=== PATIENT | female | born 1945 | race Caucasian/White ===

== ENCOUNTER 2023-02-07 16:33 | Inpatient (IN) | payer MEDICARE ==
[2023-02-07] MEDS ORDERED: clonazePAM 0.5 MG TAB PO PRN (20:21)
[2023-02-07] MEDS ORDERED: Senokot S 8.6-50 MG TAB PO PRN (20:23)
[2023-02-07] MEDS ORDERED: Ondansetron PF 4 MG/2 ML Vial IVP PRN (20:23)
[2023-02-07] MEDS ORDERED: Acetaminophen 325 MG TAB PO PRN (20:23)
[2023-02-07] MEDS ORDERED: Bisacodyl 5 MG TAB PO PRN (20:23)
[2023-02-07] MEDS ORDERED: Calcium Carbonate 500 MG ChewTAB PO PRN (20:23)
[2023-02-07 20:26] LABS: Anion Gap 19 mmol/L (10-20); BUN (Urea Nitrogen) 112 mg/dL (9.8-20.1); Calc. Creatinine Clearance 0 mL/min (70-130); Calcium 10.3 mg/dL (7.8-10.44); Carbon Dioxide 19 mmol/L (23-31); Chloride 105 mmol/L (98-107); Estimated GFR 14; Glucose 108 mg/dL (83-110); Sodium 137 mmol/L (136-145)
[2023-02-07] MEDS ORDERED: Albumin 25% 25 GM/100 ML BOT IVPB SCH (20:30)
[2023-02-07 20:36] LABS: Potassium 6.1 mmol/L (3.5-5.1)
[2023-02-07] MEDS ORDERED: Calcium Gluc 4.6 MEQ/10 ML (100 MG/ML) SLOW IVP SCH (20:45)
[2023-02-07] MEDS ORDERED: LOKELMA 10 GM PACKET PO SCH (20:45)
[2023-02-07 20:54] LABS: Troponin I 0.027 ng/mL (< 0.028)
[2023-02-07] MEDS ORDERED: Metoprolol Tartrate 25 MG TAB PO SCH (21:00)
[2023-02-08] MEDS ORDERED: Albumin 25% 25 GM/100 ML BOT IVPB SCH (01:00)
[2023-02-08] MEDS ORDERED: Calcium Gluc 4.6 MEQ/10 ML (100 MG/ML) SLOW IVP SCH (01:00)
[2023-02-08] MEDS ORDERED: LOKELMA 10 GM PACKET PO SCH (01:00)
[2023-02-08] MEDS: Dextrose 5 % And 0.9 % NaCl 1,000 ML IV SCH ×3 (01:07→16:30)
[2023-02-08] MEDS: Atorvastatin Calcium 10 MG TAB PO SCH ×2 (01:07→23:07)
[2023-02-08 04:43] LABS: #Monocytes 0.6 10x3/uL (0.0-1.1); #Neutrophils 1.9 10x3/uL (1.5-8.4); %Basophils 0.3 % (0.0-2.0); %Eosinophils 0.8 % (0.0-6.0); %Lymphocytes 34.4 % (18.0-47.0); %Monocytes 14.8 % (0.0-10.0); %Neutrophils 49.4 % (40.0-75.0); Hematocrit 37.6 % (34.9-44.5); Mean Corpuscular HGB CONC 31.9 g/dL (32.0-36.0); Mean Corpuscular Hemoglobin 28.2 pg (27.0-33.0); Mean Corpuscular Volume 88.5 fl (81.6-98.3); Mean Platelet Volume 12.8 fl (7.4-10.4); Platelet Count 126 10x3/uL (150-450); Red Blood Cell (RBC) Count 4.25 10x6/uL (3.90-5.03); White Blood Cell (WBC) Count 3.8 10x3/uL (3.5-10.5)
[2023-02-08 04:49] LABS: Anion Gap 17 mmol/L (10-20); BUN (Urea Nitrogen) 102 mg/dL (9.8-20.1); Calc. Creatinine Clearance 0 mL/min (70-130); Calcium 9.6 mg/dL (7.8-10.44); Carbon Dioxide 24 mmol/L (23-31); Chloride 107 mmol/L (98-107); Estimated GFR 17; Glucose 99 mg/dL (83-110); Potassium 5.6 mmol/L (3.5-5.1); Sodium 142 mmol/L (136-145)
[2023-02-08 04:51] LABS: Prothrombin Time 85.2 sec (9.5-12.1)
[2023-02-08 04:55] LABS: INR-International Normal Ratio 8.2
[2023-02-08] MEDS ORDERED: Phytonadione 10 MG/ML AMP SLOW IVP SCH (05:00)
[2023-02-08] MEDS ORDERED: Metoprolol Tartrate 25 MG TAB PO SCH ×2 (05:05→09:00)
[2023-02-08] MEDS ORDERED: Phytonadione 10 MG, Admixture Fee 1 EACH in Sodium Chloride 0.9% 50 ML IVPB SCH (05:15)
[2023-02-08] MEDS: Ipratropium/Albuterol 3 ML NEB NEB PRN (06:46)
[2023-02-08] MEDS: Mometasone/Formoterol 60 PUFF AER INH SCH ×2 (06:48→19:12)
[2023-02-08 07:04] LABS: Thyroid Stimulating Hormone 0.3117 uIU/mL (0.35-4.94)
[2023-02-08 07:55] VITALS: BMI 21.5
[2023-02-08] MEDS: Escitalopram Oxalate 10 mg Tablet PO SCH (09:33)
[2023-02-08 09:54] LABS: Anion Gap 19 mmol/L (10-20); BUN (Urea Nitrogen) 99 mg/dL (9.8-20.1); Calc. Creatinine Clearance 15 mL/min (70-130); Calcium 9.5 mg/dL (7.8-10.44); Carbon Dioxide 19 mmol/L (23-31); Chloride 110 mmol/L (98-107); Estimated GFR 18; Glucose 106 mg/dL (83-110); Potassium 5.1 mmol/L (3.5-5.1); Sodium 143 mmol/L (136-145)
[2023-02-09 05:08] LABS: #Eosinphils 0.1 10x3/uL (0.0-0.5); #Monocytes 0.8 10x3/uL (0.0-1.1); #Neutrophils 3.3 10x3/uL (1.5-8.4); %Basophils 0.2 % (0.0-2.0); %Eosinophils 1.2 % (0.0-6.0); %Lymphocytes 26.6 % (18.0-47.0); %Monocytes 14.4 % (0.0-10.0); %Neutrophils 57.3 % (40.0-75.0); Hematocrit 38.3 % (34.9-44.5); Hemoglobin 11.6 g/dL (12.0-15.5); Mean Corpuscular HGB CONC 30.3 g/dL (32.0-36.0); Mean Corpuscular Hemoglobin 27.6 pg (27.0-33.0); Mean Platelet Volume 12.8 fl (7.4-10.4); Platelet Count 135 10x3/uL (150-450); RBC Distribution Width 14.8 % (11.5-14.5); Red Blood Cell (RBC) Count 4.21 10x6/uL (3.90-5.03); White Blood Cell (WBC) Count 5.8 10x3/uL (3.5-10.5)
[2023-02-09 05:17] LABS: INR-International Normal Ratio 1.3; Prothrombin Time 13.5 sec (9.5-12.1)
[2023-02-09 05:29] LABS: Troponin I 0.014 ng/mL (< 0.028)
[2023-02-09 05:32] LABS: Anion Gap 13 mmol/L (10-20); BUN (Urea Nitrogen) 63 mg/dL (9.8-20.1); Calc. Creatinine Clearance 23 mL/min (70-130); Calcium 8.6 mg/dL (7.8-10.44); Carbon Dioxide 24 mmol/L (23-31); Chloride 111 mmol/L (98-107); Estimated GFR 29; Glucose 89 mg/dL (83-110); Potassium 4.6 mmol/L (3.5-5.1); Sodium 143 mmol/L (136-145)
[2023-02-09] MEDS: Mometasone/Formoterol 60 PUFF AER INH SCH ×2 (07:35→19:15)
[2023-02-09] MEDS ORDERED: Sodium Chloride 0.9% 1,000 ML IV SCH (08:00)
[2023-02-09] MEDS: Escitalopram Oxalate 10 mg Tablet PO SCH (08:35)
[2023-02-09] MEDS: Sodium Chloride 0.45% 1,000 ML IV SCH (10:00)
[2023-02-09] MEDS: Warfarin Sodium 2.5 MG TAB PO SCH (17:18)
[2023-02-10] MEDS: Atorvastatin Calcium 10 MG TAB PO SCH ×2 (00:30→20:37)
[2023-02-10 04:35] LABS: #Eosinphils 0.1 10x3/uL (0.0-0.5); #Monocytes 0.8 10x3/uL (0.0-1.1); #Neutrophils 4.9 10x3/uL (1.5-8.4); %Basophils 0.1 % (0.0-2.0); %Eosinophils 0.7 % (0.0-6.0); %Lymphocytes 17.6 % (18.0-47.0); %Monocytes 11.5 % (0.0-10.0); %Neutrophils 69.8 % (40.0-75.0); Hematocrit 38.7 % (34.9-44.5); Mean Corpuscular Hemoglobin 27.8 pg (27.0-33.0); Mean Corpuscular Volume 89.8 fl (81.6-98.3); Mean Platelet Volume 12.4 fl (7.4-10.4); Platelet Count 137 10x3/uL (150-450); RBC Distribution Width 14.7 % (11.5-14.5); Red Blood Cell (RBC) Count 4.31 10x6/uL (3.90-5.03)
[2023-02-10 04:39] LABS: Anion Gap 12 mmol/L (10-20); BUN (Urea Nitrogen) 41 mg/dL (9.8-20.1); Calc. Creatinine Clearance 28 mL/min (70-130); Calcium 8.4 mg/dL (7.8-10.44); Carbon Dioxide 25 mmol/L (23-31); Chloride 107 mmol/L (98-107); Estimated GFR 38; Glucose 90 mg/dL (83-110); Potassium 4.5 mmol/L (3.5-5.1); Sodium 139 mmol/L (136-145)
[2023-02-10 04:44] LABS: INR-International Normal Ratio 1.1
[2023-02-10] MEDS: Sodium Chloride 0.45% 1,000 ML IV SCH ×2 (05:42→20:37)
[2023-02-10] MEDS: Escitalopram Oxalate 10 mg Tablet PO SCH (08:28)
[2023-02-10] MEDS: Mometasone/Formoterol 60 PUFF AER INH SCH ×2 (10:00→18:59)
[2023-02-10] MEDS: Warfarin Sodium 2.5 MG TAB PO SCH (18:49)
[2023-02-11 04:25] LABS: INR-International Normal Ratio 1.2; Prothrombin Time 12.4 sec (9.5-12.1)
[2023-02-11 04:27] LABS: #Monocytes 0.8 10x3/uL (0.0-1.1); #Neutrophils 5.4 10x3/uL (1.5-8.4); %Basophils 0.3 % (0.0-2.0); %Eosinophils 0.5 % (0.0-6.0); %Lymphocytes 18.8 % (18.0-47.0); %Monocytes 9.9 % (0.0-10.0); %Neutrophils 70.1 % (40.0-75.0); Anion Gap 13 mmol/L (10-20); BUN (Urea Nitrogen) 28 mg/dL (9.8-20.1); Calc. Creatinine Clearance 33 mL/min (70-130); Calcium 8.6 mg/dL (7.8-10.44); Carbon Dioxide 23 mmol/L (23-31); Chloride 104 mmol/L (98-107); Estimated GFR 46; Glucose 89 mg/dL (83-110); Hematocrit 39.7 % (34.9-44.5); Hemoglobin 12.5 g/dL (12.0-15.5); Mean Corpuscular HGB CONC 31.5 g/dL (32.0-36.0); Mean Corpuscular Hemoglobin 27.4 pg (27.0-33.0); Mean Corpuscular Volume 86.9 fl (81.6-98.3); Mean Platelet Volume 12.6 fl (7.4-10.4); Platelet Count 157 10x3/uL (150-450); Potassium 4.1 mmol/L (3.5-5.1); RBC Distribution Width 14.6 % (11.5-14.5); Red Blood Cell (RBC) Count 4.57 10x6/uL (3.90-5.03); Sodium 136 mmol/L (136-145); White Blood Cell (WBC) Count 7.7 10x3/uL (3.5-10.5)
[2023-02-11] MEDS: Escitalopram Oxalate 10 mg Tablet PO SCH (09:15)
[2023-02-11] MEDS: Mometasone/Formoterol 60 PUFF AER INH SCH ×2 (10:30→19:22)
[2023-02-11] MEDS ORDERED: Warfarin Sodium 5 MG TAB PO SCH (17:00)
[2023-02-11] MEDS: Atorvastatin Calcium 10 MG TAB PO SCH (21:51)
[2023-02-11] MEDS: Sodium Chloride 0.45% 1,000 ML IV SCH (22:39)
[2023-02-12 04:05] LABS: INR-International Normal Ratio 1.4; Prothrombin Time 15.3 sec (9.5-12.1)
[2023-02-12 04:07] LABS: Anion Gap 16 mmol/L (10-20); BUN (Urea Nitrogen) 24 mg/dL (9.8-20.1); Calc. Creatinine Clearance 36 mL/min (70-130); Calcium 8.6 mg/dL (7.8-10.44); Carbon Dioxide 20 mmol/L (23-31); Chloride 105 mmol/L (98-107); Estimated GFR 52; Glucose 85 mg/dL (83-110); Sodium 137 mmol/L (136-145)
[2023-02-12 04:57] LABS: #Eosinphils 0.1 10x3/uL (0.0-0.5); #Monocytes 0.7 10x3/uL (0.0-1.1); %Basophils 0.4 % (0.0-2.0); %Eosinophils 0.8 % (0.0-6.0); %Lymphocytes 22.9 % (18.0-47.0); %Monocytes 8.7 % (0.0-10.0); %Neutrophils 66.8 % (40.0-75.0); Hematocrit 40.2 % (34.9-44.5); Hemoglobin 12.8 g/dL (12.0-15.5); Mean Corpuscular HGB CONC 31.8 g/dL (32.0-36.0); Mean Corpuscular Hemoglobin 27.9 pg (27.0-33.0); Mean Corpuscular Volume 87.8 fl (81.6-98.3); Mean Platelet Volume 12.8 fl (7.4-10.4); Platelet Count 144 10x3/uL (150-450); RBC Distribution Width 14.6 % (11.5-14.5); Red Blood Cell (RBC) Count 4.58 10x6/uL (3.90-5.03); White Blood Cell (WBC) Count 7.6 10x3/uL (3.5-10.5)
[2023-02-12] MEDS: Mometasone/Formoterol 60 PUFF AER INH SCH ×2 (07:35→21:00)
[2023-02-12] MEDS: Ipratropium/Albuterol 3 ML NEB NEB PRN (07:45)
[2023-02-12] MEDS: Escitalopram Oxalate 10 mg Tablet PO SCH (08:57)
[2023-02-12] MEDS ORDERED: Warfarin Sodium 5 MG TAB PO SCH (17:00)
[2023-02-12] MEDS: Sodium Chloride 0.45% 1,000 ML IV SCH (19:00)
[2023-02-12] MEDS: Atorvastatin Calcium 10 MG TAB PO SCH (21:38)
[2023-02-13 04:38] LABS: INR-International Normal Ratio 1.9; Prothrombin Time 20.5 sec (9.5-12.1)
[2023-02-13] MEDS: Mometasone/Formoterol 60 PUFF AER INH SCH ×2 (06:38→19:45)
[2023-02-13] MEDS: Escitalopram Oxalate 10 mg Tablet PO SCH (08:44)
[2023-02-13] MEDS: Sodium Chloride 0.45% 1,000 ML IV SCH (14:03)
[2023-02-13] MEDS: Warfarin Sodium 2.5 MG TAB PO SCH (17:08)
[2023-02-13] MEDS: Atorvastatin Calcium 10 MG TAB PO SCH (20:53)
[2023-02-14 04:37] LABS: INR-International Normal Ratio 2.3; Prothrombin Time 24.5 sec (9.5-12.1)
[2023-02-14] MEDS: Mometasone/Formoterol 60 PUFF AER INH SCH ×2 (06:40→20:07)
[2023-02-14] MEDS: Escitalopram Oxalate 10 mg Tablet PO SCH (09:39)
[2023-02-14] MEDS ORDERED: Sodium Chloride 0.9% 500 ML IV SCH (09:45)
[2023-02-14] MEDS: Warfarin Sodium 2.5 MG TAB PO SCH (17:26)
[2023-02-14] MEDS ORDERED: Ketotifen Fumarate 0.025% Ophth Soln 5 ml Bottle R EYE SCH (18:00)
[2023-02-14] MEDS: Atorvastatin Calcium 10 MG TAB PO SCH (20:28)
[2023-02-14] MEDS: Ketotifen Fumarate 0.025% Ophth Soln 5 ml Bottle EA EYE SCH (20:28)
[2023-02-15 04:34] LABS: INR-International Normal Ratio 2.7
[2023-02-15 04:39] VITALS: TEMP 97.7
[2023-02-15 07:21] VITALS: BP 110/64
[2023-02-15] MEDS: Mometasone/Formoterol 60 PUFF AER INH SCH (07:59)
[2023-02-15] MEDS: Escitalopram Oxalate 10 mg Tablet PO SCH (08:32)
[2023-02-15] MEDS: Ketotifen Fumarate 0.025% Ophth Soln 5 ml Bottle EA EYE SCH (08:32)
== END 2023-02-15 11:27 | DRG 682 ==
LOC: CSHTELE 17:56
PROVIDERS: ADMIT Hospitalist; ATTEND Internal Medicine
PROC: 30233J1 Transfusion of Nonautologous Serum Albumin into Peripheral Vein, Percutaneous Approach (ICD-10-PCS; principal; 2023-02-08)
DX: N17.9 Acute kidney failure, unspecified (principal); G93.41 Metabolic encephalopathy; E87.20 Acidosis, unspecified; I13.0 Hypertensive heart and chronic kidney disease with heart failure and stage 1 through stage 4 chronic kidney disease, or unspecified chronic kidney disease; I50.32 Chronic diastolic (congestive) heart failure; R64 Cachexia; E46 Unspecified protein-calorie malnutrition; E87.5 Hyperkalemia; F03.90 Unspecified dementia, unspecified severity, without behavioral disturbance, psychotic disturbance, mood disturbance, and anxiety; Z66 Do not resuscitate; F41.9 Anxiety disorder, unspecified; R62.7 Adult failure to thrive; E86.0 Dehydration; I48.0 Paroxysmal atrial fibrillation; J45.909 Unspecified asthma, uncomplicated; I87.8 Other specified disorders of veins; N18.4 Chronic kidney disease, stage 4 (severe); R94.6 Abnormal results of thyroid function studies; D63.1 Anemia in chronic kidney disease; D69.6 Thrombocytopenia, unspecified; I73.9 Peripheral vascular disease, unspecified; R79.1 Abnormal coagulation profile; Z79.51 Long term (current) use of inhaled steroids; Z79.01 Long term (current) use of anticoagulants; Z79.899 Other long term (current) drug therapy; Z90.49 Acquired absence of other specified parts of digestive tract; Z87.891 Personal history of nicotine dependence; Z68.21 Body mass index [BMI] 21.0-21.9, adult
CPT/HCPCS: 36415; 76770; 80048; 82607; 84439; 84443; 84484; 85025; 85610; 93005; 93010; 94664; 94760; 94762; J0612; J1650; J3430; J7030; J7042; J7050; J7620; P9047